=== PATIENT | male | born 1955 | race Caucasian/White ===

== ENCOUNTER → 2017-03-24 | Outpatient (CLI) | payer BC ==
--- NOTE | 2017-03-24 12:24 | RADIOLOGY REPORT PS360 ---
TOE-LT-2ND DIGIT-3 VIEWS CLINICAL INDICATION: PAIN/SWELLING LEFT 2ND TOE ORDERING PHYSICIAN: Dany Watts MD PATIENT AGE: 61 years COMPARISON: None FINDINGS: No obvious fracture or dislocation. There are some minimal bony hypertrophic changes at the DIP joint of the second digit with minimal soft tissue swelling. No obvious erosive change or soft tissue gas evident. IMPRESSION: Mild soft tissue swelling at the second digit with mild degenerative change, no acute finding
== END ==
LOC: RAD 11:45
DX: M79.675 Pain in left toe(s) (principal); M79.89 Other specified soft tissue disorders